=== PATIENT | male | born 1995 | race Caucasian/White ===

== ENCOUNTER 2020-11-14 16:28 | Emergency (ER) | payer BC, SELFPAY ==
[2020-11-14 16:45] VITALS: BP 142/82; PULSE 94; RESP 18; TEMP 37.1; O2SAT 98; BMI 25.0
--- NOTE | 2020-11-14 16:50 | PC.NURSE ---
ambulatory with steady gait to main ed bed 18h, speaks in full sentences, no respiratory distress at present time, states hurts to deep breathe
--- NOTE | 2020-11-14 16:56 | XR_ITS ---
EXAMINATION: XR RIBS, RIGHT CLINICAL INFORMATION: Chest with right RIBS. COMPARISON: None. TECHNIQUE: 3 views of the right ribs were obtained. FINDINGS: Chest: The lungs are well-expanded and clear of acute pneumonic process. There is prominent interstitial markings but no congestion or pneumonitis. No pleural effusion seen. The heart size and pulmonary vascularity is normal. Right RIBS: Multiple views of right ribs reveal no visible rib fracture. No bony abnormality. No visible pneumothorax. XR/XR ribs RT min 3V w CXR1V IMPRESSION: Unremarkable chest exam. Unremarkable right rib exam.
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
== END 2020-11-14 19:16 | disposition home or self-care (01) ==
PROVIDERS: Emergency Provider Emergency Medicine
DX: S20.211A Contusion of right front wall of thorax, initial encounter (principal); Y04.2XXA Assault by strike against or bumped into by another person, initial encounter; Y93.9 Activity, unspecified; Y92.9 Unspecified place or not applicable; Y99.9 Unspecified external cause status
CPT/HCPCS: 71101; 99283; 99284